=== PATIENT | female | born 1990 | race Two or more races ===

== ENCOUNTER 2022-05-13 13:06 | Emergency (ER) | payer MEDICAID, OTHER ==
[~2022-05-13] VITALS: Ht 162.6 cm; Wt 73.0 kg
[2022-05-13 13:45] VITALS: BP 102/82
== END 2022-05-13 14:51 | disposition left against medical advice (07) ==
LOC: EDBD 13:06 → ER 13:06
DX: S51.812A Laceration without foreign body of left forearm, initial encounter (principal); Z53.29 Procedure and treatment not carried out because of patient's decision for other reasons; W26.9XXA Contact with unspecified sharp object(s), initial encounter; Y93.89 Activity, other specified; Y92.89 Other specified places as the place of occurrence of the external cause; Y99.8 Other external cause status

== ENCOUNTER 2024-03-16 16:00 | Inpatient (IN) | payer MEDICAID ==
[~2024-03-16] VITALS: Ht 162.6 cm; Wt 90.8 kg
[2024-03-16] VITALS (11 sets, daily range): BP systolic 75–112; BP diastolic 33–62; PULSE 87–117; RESP 22–39; TEMP 94.8–97.5; O2SAT 100
[2024-03-16 16:38] LABS: Mean Corpuscular Hemoglobin 29.6 pg (28.0-32.0); Mean Corpuscular Hgb Conc. 30.8 g/dL (32.0-36.0); Mean Corpuscular Volume 96.1 fL (80.0-100.0); Red Blood Cells 1.97 10^6/uL (4.0-5.20); White Blood Cell 6.8 10^3/uL (4.4-10.8)
[2024-03-16 16:46] LABS: Albumin 1.9 g/dL (3.2-4.8); Alkaline Phosphatase 117 U/L (46-116); Anion Gap 16 (5-15); Blood Alcohol < 3.0 mg/dL (<10); Calcium 7.2 mg/dL (8.7-10.4); Carbon Dioxide 15 mmol/L (20-30); Chloride 103 mmol/L (98-107); Glucose 61 mg/dL (74-106); Potassium 3.9 mmol/L (3.5-5.1); Sodium 134 mmol/L (136-145)
[2024-03-16 16:47] LABS: Bilirubin, Total 19.8 mg/dL (0.2-1.0)
[2024-03-16 16:49] LABS: Alanine Aminotransferase 30 U/L (7-40); Aspartate Aminotransferase 125 U/L (13-40); Total Protein 5.1 g/dL (5.7-8.2)
[2024-03-16 16:58] LABS: Red Cell Distribution Width 35.4 % (11.8-14.3)
[2024-03-16 17:01] LABS: BUN/Creatinine Ratio 18.4 (10.0-20.0); Blood Urea Nitrogen 18 mg/dL (9-23); Lipase 54 U/L (12-53); Partial Thromboplastin Time 42.7 SEC (24.5-34.5); Prothrombin Time 39.3 sec (9.3-11.8)
[2024-03-16 17:02] LABS: Basophils % (manual) 0 (0.0-2.0); Blast Cells 0; Eosinophils % (manual) 0 (0-7); Hemoglobin 5.8 g/dL (12.2-16.2); Metamyelocytes % 0; Myelocytes % 0; Promyelocytes % 0; Reactive Lymphocytes 0
[2024-03-16 17:04] LABS: INR 4.12 (0.9-1.15)
[2024-03-16 17:10] LABS: Band Neutrophils % (manual) 2; Lymphocytes % (manual) 26 (10.0-50.0)
[2024-03-16 17:11] LABS: Anisocytosis Slight; Large Platelets FEW; Macrocytosis Slight; Monocytes % (manual) 21 (0-12); Platelet Estimate Adequa; Polychromasia Slight
[2024-03-16] MEDS: NOREPINEPHRINE 8 MG/250ML KIT 250 ML IV SCH (17:57)
[2024-03-16] MEDS: PANTOPRAZOLE 40 MG/10 ML VIAL INJ IV ONE (17:59)
[2024-03-16] MEDS ORDERED: ACETAMINOPHEN 325 MG TAB PO PRN (20:30)
[2024-03-16] MEDS ORDERED: DOCUSATE SOD 100 MG CAP PO PRN (20:30)
[2024-03-16] MEDS ORDERED: HYDROcodone-ACET 5/325MG TAB PO PRN (20:30)
[2024-03-16] MEDS ORDERED: ONDANSETRON HCL 4 MG/2 ML VIAL IV PRN (20:30)
[2024-03-16] MEDS: phytonadione 1 ML ONE (22:27)
[2024-03-16] MEDS: SODIUM CHLOR 0.9% PF (SALINE LOCK) 10ML VIAL/SYR IV SCH (22:27)
[2024-03-16] MEDS: phytonadione 10 MG in SODIUM CHL 0.9% 50 ML IV ONE (22:32)
[2024-03-16] MEDS: LACTULOSE 20Gm/30ML SOLN PO SCH (22:32)
[2024-03-16] MEDS: rifAXIMin 550 MG TAB PO SCH (22:33)
[2024-03-16] MEDS: OCTREOTIDE ACETATE 500 MCG in SODIUM CHL 0.9% 99 ML IV SCH (23:15)
[2024-03-16] MEDS: PANTOPRAZOLE 40mg/50ML NS AE 50 ML IV SCH (23:15)
[2024-03-16] MEDS: OCTREOTIDE ACETATE 500 MCG/ML VL ONE (23:49)
[2024-03-17 01:58] VITALS: BP 125/66; PULSE 90; RESP 24; TEMP 98.8
[2024-03-17 02:18] VITALS: BP 130/76; PULSE 93; RESP 24; TEMP 98.8
[2024-03-17 04:30] VITALS: BP 143/53; PULSE 103; RESP 22; TEMP 98.1
[2024-03-17] MEDS: OCTREOTIDE ACETATE 500 MCG/ML VL ONE (06:46)
[2024-03-17 08:39] LABS: Hemoglobin 7.7 g/dL (12.2-16.2)
[2024-03-17 08:42] LABS: Hematocrit 23.4 % (36.0-46.0); Mean Corpuscular Hemoglobin 29.1 pg (28.0-32.0); Mean Corpuscular Hgb Conc. 32.8 g/dL (32.0-36.0); Mean Corpuscular Volume 88.7 fL (80.0-100.0); Red Blood Cells 2.64 10^6/uL (4.0-5.20); White Blood Cell 8.2 10^3/uL (4.4-10.8)
[2024-03-17 08:46] LABS: INR 2.31 (0.9-1.15)
[2024-03-17 08:54] LABS: Red Cell Distribution Width 28.6 % (11.8-14.3)
[2024-03-17 08:56] LABS: Basophils % (manual) 0 (0.0-2.0); Blast Cells 0; Eosinophils % (manual) 0 (0-7); Metamyelocytes % 0; Myelocytes % 0; Promyelocytes % 0; Reactive Lymphocytes 0
[2024-03-17] MEDS: cefTRIAXone 1GM/50ML D5W 50 ML IV SCH (09:04)
[2024-03-17 09:40] LABS: Band Neutrophils % (manual) 1; Lymphocytes % (manual) 31 (10.0-50.0); Monocytes % (manual) 21 (0-12)
[2024-03-17 09:41] LABS: Anisocytosis Moderate; Platelet Estimate Adequate; Polychromasia Slight
[2024-03-17] MEDS ORDERED: phytonadione 10 MG in SODIUM CHL 0.9% 50 ML IV ONE (11:30)
[2024-03-17] MEDS: ALBUMIN 25% 100 ML IV SCH (11:48)
[2024-03-17] MEDS ORDERED: HYDROcodone-ACET 5/325MG TAB PO PRN (12:00)
[2024-03-17 12:38] LABS: Hematocrit 23.5 % (36.0-46.0); Hemoglobin 7.9 g/dL (12.2-16.2)
[2024-03-17 18:38] LABS: Hematocrit 22.4 % (36.0-46.0); Hemoglobin 7.1 g/dL (12.2-16.2)
[2024-03-17 19:04] LABS: Alkaline Phosphatase 91 U/L (46-116); Anion Gap 13 (5-15); Calcium 7.8 mg/dL (8.7-10.4); Carbon Dioxide 20 mmol/L (20-30); Chloride 103 mmol/L (98-107); Glucose 71 mg/dL (74-106); Potassium 3.7 mmol/L (3.5-5.1); Sodium 136 mmol/L (136-145)
[2024-03-17 19:05] LABS: Albumin 2.8 g/dL (3.2-4.8); Bilirubin, Total 24.4 mg/dL (0.2-1.0)
[2024-03-17 19:15] VITALS: PULSE 96; RESP 17; O2SAT 98
[2024-03-17 19:41] LABS: Alanine Aminotransferase 43 U/L (7-40); Aspartate Aminotransferase 338 U/L (13-40); Blood Urea Nitrogen 22 mg/dL (9-23); Total Protein 5.7 g/dL (5.7-8.2)
[2024-03-17 23:29] VITALS: BP 95/43; PULSE 78; RESP 17; TEMP 97.7; O2SAT 99
[2024-03-17 23:50] VITALS: BP 106/54; PULSE 83
[2024-03-18] VITALS (12 sets, daily range): BP systolic 91–118; BP diastolic 40–67; PULSE 66–93; RESP 16–18; TEMP 97.5–98.3; O2SAT 96–99
[2024-03-18] MEDS: PANTOPRAZOLE 40mg/50ML NS AE 50 ML IV SCH (00:22)
[2024-03-18 01:02] LABS: Hematocrit 21.8 % (36.0-46.0)
[2024-03-18 01:27] LABS: Hemoglobin 6.9 g/dL (12.2-16.2)
[2024-03-18] MEDS: OCTREOTIDE ACETATE 100 MCG/ML VL ONE (04:45)
[2024-03-18] MEDS: OCTREOTIDE ACETATE 500 MCG in SODIUM CHL 0.9% 99 ML IV SCH (05:43)
[2024-03-18 09:14] LABS: Basophils # (auto) 0 10 ^3/uL (0-0.2); Eosinophils # (auto) 0.1 10 ^3/uL (0-0.8); Mean Corpuscular Volume 89.5 fL (80.0-100.0)
[2024-03-18 09:16] LABS: Basophils % (auto) 0.6 % (0.0-2.0); Eosinophils % (auto) 1.5 % (0.0-7.0); Hematocrit 25.3 % (36.0-46.0); Hemoglobin 8.4 g/dL (12.2-16.2); Lymphocytes # (auto) 1.6 10 ^3/uL (0.4-5.4); Lymphocytes % (auto) 27.8 % (10.0-50.0); Mean Corpuscular Hemoglobin 29.7 pg (28.0-32.0); Mean Corpuscular Hgb Conc. 33.2 g/dL (32.0-36.0); Monocytes # (auto) 1.4 10 ^3/uL (0-1.3); Monocytes % (auto) 23.6 % (0.0-12.0); Neutrophils # (auto) 2.7 10 ^3/uL (1.6-8.6); Neutrophils % (auto) 46.5 % (37.0-80.0); Nucleated Red Blood Cells % 0.3 %; Red Blood Cells 2.82 10^6/uL (4.0-5.20); Red Cell Distribution Width 24.9 % (11.8-14.3); White Blood Cell 5.9 10^3/uL (4.4-10.8)
[2024-03-18 09:22] LABS: INR 2.24 (0.9-1.15); Partial Thromboplastin Time 43.2 SEC (24.5-34.5); Prothrombin Time 22.4 sec (9.3-11.8)
[2024-03-18 09:26] LABS: Albumin 2.5 g/dL (3.2-4.8); Alkaline Phosphatase 92 U/L (46-116); Anion Gap 12 (5-15); Calcium 7.6 mg/dL (8.7-10.4); Carbon Dioxide 21 mmol/L (20-30); Chloride 104 mmol/L (98-107); Glucose 66 mg/dL (74-106); Magnesium 1.5 mg/dL (1.6-2.6); Potassium 3.4 mmol/L (3.5-5.1); Sodium 137 mmol/L (136-145)
[2024-03-18 09:27] LABS: Bilirubin, Total 23.4 mg/dL (0.2-1.0)
[2024-03-18 10:44] LABS: Alanine Aminotransferase 37 U/L (7-40); Aspartate Aminotransferase 228 U/L (13-40); BUN/Creatinine Ratio 16.2 (10.0-20.0); Blood Urea Nitrogen 23 mg/dL (9-23); Total Protein 5.1 g/dL (5.7-8.2)
[2024-03-18 12:09] LABS: Hemoglobin 8.1 g/dL (12.2-16.2)
[2024-03-18] MEDS: phytonadione 10 MG in SODIUM CHL 0.9% 50 ML IV ONE (13:07)
[2024-03-18] MEDS: POTASSIUM CHL 20MEQ/100ML 100 ML IV ONE (13:28)
[2024-03-18] MEDS: SODIUM CHLORIDE 0.9% 1,000 ML IV SCH (13:28)
[2024-03-18] MEDS: MAGNESIUM SULFATE 1GM/100ML 100 ML IV SCH (15:17)
[2024-03-18] MEDS: SODIUM CHLORIDE 0.9% 500 ML IV ONE (15:23)
[2024-03-18 18:41] LABS: Hematocrit 32.2 % (36.0-46.0); Hemoglobin 10.3 g/dL (12.2-16.2)
[2024-03-19] VITALS (10 sets, daily range): BP systolic 98–107; BP diastolic 43–68; PULSE 70–90; RESP 17–20; TEMP 97.5–98.7; O2SAT 95–100
[2024-03-19 06:16] LABS: Mean Corpuscular Hemoglobin 29.6 pg (28.0-32.0); Red Blood Cells 2.79 10^6/uL (4.0-5.20); White Blood Cell 5.2 10^3/uL (4.4-10.8)
[2024-03-19 06:19] LABS: Hematocrit 24.6 % (36.0-46.0); Hemoglobin 8.2 g/dL (12.2-16.2); Mean Corpuscular Hgb Conc. 33.5 g/dL (32.0-36.0); Mean Corpuscular Volume 88.3 fL (80.0-100.0)
[2024-03-19 06:31] LABS: Red Cell Distribution Width 23.9 % (11.8-14.3)
[2024-03-19 06:32] LABS: Band Neutrophils % (manual) 0; Basophils % (manual) 0 (0.0-2.0); Blast Cells 0; Metamyelocytes % 0; Myelocytes % 0; Promyelocytes % 0; Reactive Lymphocytes 0
[2024-03-19 06:35] LABS: Albumin 2.3 g/dL (3.2-4.8); Alkaline Phosphatase 97 U/L (46-116); Anion Gap 8 (5-15); Calcium 7.5 mg/dL (8.7-10.4); Carbon Dioxide 21 mmol/L (20-30); Chloride 106 mmol/L (98-107); Glucose 95 mg/dL (74-106); Magnesium 1.8 mg/dL (1.6-2.6); Potassium 3.2 mmol/L (3.5-5.1); Sodium 135 mmol/L (136-145)
[2024-03-19 06:36] LABS: Bilirubin, Total 23.4 mg/dL (0.2-1.0)
[2024-03-19 06:46] LABS: Alanine Aminotransferase 34 U/L (7-40); Aspartate Aminotransferase 147 U/L (13-40); BUN/Creatinine Ratio 19.2 (10.0-20.0); Blood Urea Nitrogen 20 mg/dL (9-23)
[2024-03-19 09:25] LABS: Eosinophils % (manual) 1 (0-7); Lymphocytes % (manual) 23 (10.0-50.0); Monocytes % (manual) 18 (0-12)
[2024-03-19 09:26] LABS: Anisocytosis Slight; Platelet Estimate Adequate
[2024-03-19] MEDS: POTASSIUM CHL 20MEQ/100ML 100 ML IV ONE (10:30)
[2024-03-19] MEDS ORDERED: SODIUM CHLORIDE LOCK 10 ML ONE (11:45)
[2024-03-19] MEDS: LIDOCAINE VISCOUS 2% 15ML UD ONE (13:17)
[2024-03-19] MEDS: diphenhdrAMINE HCL 50 MG/1 ML VL ONE (13:20)
[2024-03-19] MEDS: fentaNYL CITRATE 100 MCG/2 ML VL ONE (13:20)
[2024-03-19] MEDS: MIDAZOLAM HCL 5 MG/ML-1ML VIAL ONE (13:20)
[2024-03-19] MEDS: POTASSIUM CHLORIDE 40 MEQ, LIDOCAINE 1% (LOCAL ANESTH.) 4 ML in SODIUM CHL 0.9% 250 ML IV ONE (14:30)
[2024-03-19] MEDS: SUCRALFATE 1 GM/10 ML ORAL SUSP PO SCH (16:55)
[2024-03-20] VITALS (9 sets, daily range): BP systolic 95–116; BP diastolic 55–72; PULSE 68–109; RESP 17–20; TEMP 97.4–98.6; O2SAT 97–100
[2024-03-20 06:31] LABS: Albumin 2.2 g/dL (3.2-4.8); Alkaline Phosphatase 105 U/L (46-116); Anion Gap 9 (5-15); Calcium 7.6 mg/dL (8.7-10.4); Carbon Dioxide 19 mmol/L (20-30); Chloride 109 mmol/L (98-107); Glucose 79 mg/dL (74-106); Magnesium 1.8 mg/dL (1.6-2.6); Potassium 3.8 mmol/L (3.5-5.1); Sodium 137 mmol/L (136-145)
[2024-03-20 06:32] LABS: Bilirubin, Total 25.7 mg/dL (0.2-1.0)
[2024-03-20 06:33] LABS: Alanine Aminotransferase 38 U/L (7-40); Aspartate Aminotransferase 124 U/L (13-40); Blood Urea Nitrogen 12 mg/dL (9-23); Total Protein 5.2 g/dL (5.7-8.2)
[2024-03-20 06:35] LABS: Hematocrit 29.8 % (36.0-46.0); Hemoglobin 9.5 g/dL (12.2-16.2); Mean Corpuscular Hemoglobin 29.4 pg (28.0-32.0); Mean Corpuscular Hgb Conc. 31.9 g/dL (32.0-36.0); Mean Corpuscular Volume 92.2 fL (80.0-100.0); Red Blood Cells 3.23 10^6/uL (4.0-5.20); White Blood Cell 5.5 10^3/uL (4.4-10.8)
[2024-03-20 06:44] LABS: Red Cell Distribution Width 24.7 % (11.8-14.3)
[2024-03-20 06:46] LABS: Band Neutrophils % (manual) 0; Basophils % (manual) 0 (0.0-2.0); Blast Cells 0; Eosinophils % (manual) 0 (0-7); Metamyelocytes % 0; Myelocytes % 0; Promyelocytes % 0; Reactive Lymphocytes 0
[2024-03-20 08:36] LABS: Lymphocytes % (manual) 29 (10.0-50.0)
[2024-03-20 08:37] LABS: Anisocytosis Slight; Monocytes % (manual) 18 (0-12); Platelet Estimate Adequate
[2024-03-20 09:24] LABS: Hepatitis B Surface Antigen Negative (Negative)
[2024-03-20 09:29] LABS: Hepatitis B Surface Antigen Negative (Negative)
[2024-03-20 09:46] LABS: Hepatitis A Ab IgM Negative; Hepatitis B Core IgM Negative
[2024-03-20 09:47] LABS: Hepatitis C Antibody Negative (Negative)
[2024-03-20 09:51] LABS: Hepatitis C Antibody Negative (Negative)
[2024-03-20] MEDS: PANTOPRAZOLE 40 MG/10 ML VIAL INJ IV SCH (10:07)
[2024-03-20 10:47] LABS: Urine Bacteria FEW /hpf (None Seen); Urine Blood 3+ /uL (Negative); Urine Clarity Turbid (Clear); Urine Color Dark-Yellow (Yellow); Urine Protein, UAD TRACE (Negative); Urine Specific Gravity 1.014 (1.001-1.035); Urine Urobilinogen Normal (Negative); Urine WBC 16 /hpf (0 - 5)
[2024-03-20 11:02] LABS: Sodium Urine < 10 mmol/L (40-220)
[2024-03-20 11:09] LABS: Creatinine, Urine 80.85 mg/dL (30.0-125.0)
[2024-03-21 08:30] VITALS: PULSE 83; RESP 18; O2SAT 97
[2024-03-21 09:00] VITALS: BP 105/63; PULSE 83; RESP 18; TEMP 97.8; O2SAT 97
[2024-03-21] MEDS: predniSONE 20 MG TAB PO SCH (09:08)
[2024-03-21] MEDS: FUROSEMIDE 40 MG/4 ML VIAL IV ONE (11:24)
[2024-03-21] MEDS ORDERED: FUROSEMIDE 40 MG/4 ML VIAL IV SCH (18:00)
== END 2024-03-21 15:58 | disposition short-term general hospital (02) | DRG 241 ==
LOC: EDBD 16:00 → ER 16:00 → TELE 20:26 → TELE-WESTW 03-17 22:38
PROVIDERS: ADMIT Internal Medicine; ATTEND Internal Medicine Geriatric Medicine
PROC: 30233K1 Transfusion of Nonautologous Frozen Plasma into Peripheral Vein, Percutaneous Approach (ICD-10-PCS; 2024-03-16)
PROC: 30233N1 Transfusion of Nonautologous Red Blood Cells into Peripheral Vein, Percutaneous Approach (ICD-10-PCS; 2024-03-16)
PROC: 0DB68ZX Excision of Stomach, Via Natural or Artificial Opening Endoscopic, Diagnostic (ICD-10-PCS; principal; 2024-03-19 13:12)
DX: K28.4 Chronic or unspecified gastrojejunal ulcer with hemorrhage (principal); R57.1 Hypovolemic shock; E43 Unspecified severe protein-calorie malnutrition; D68.9 Coagulation defect, unspecified; E87.20 Acidosis, unspecified; K83.1 Obstruction of bile duct; N17.9 Acute kidney failure, unspecified; K76.82 Hepatic encephalopathy; E87.1 Hypo-osmolality and hyponatremia; E88.09 Other disorders of plasma-protein metabolism, not elsewhere classified; K70.31 Alcoholic cirrhosis of liver with ascites; I95.9 Hypotension, unspecified; D62 Acute posthemorrhagic anemia; K76.0 Fatty (change of) liver, not elsewhere classified; E87.6 Hypokalemia; E66.9 Obesity, unspecified; K70.11 Alcoholic hepatitis with ascites; K29.70 Gastritis, unspecified, without bleeding; Z90.49 Acquired absence of other specified parts of digestive tract; Z88.6 Allergy status to analgesic agent; Z98.84 Bariatric surgery status; Z68.34 Body mass index [BMI] 34.0-34.9, adult
CPT/HCPCS: 36415; 43239; 74176; 76705; 80053; 80074; 80320; 81001; 81025; 82140; 82248; 82570; 83690; 83735; 84300; 84702; 85007; 85014; 85018; 85025; 85027; 85610; 85730; 86803; 86850; 86900; 86901; 86920; 87340; 96361; 96365; 96366; 96367; 96375; 97163; 99291; G0378; J2001; J2250; J2470; J3430; J3480; P9047

== ENCOUNTER 2024-04-03 15:19 | Inpatient (IN) | payer MEDICAID ==
[~2024-04-03] VITALS: Ht 162.6 cm; Wt 87.0 kg
[2024-04-03 16:30] VITALS: PULSE 123; RESP 18; O2SAT 99
[2024-04-03 17:01] LABS: Alkaline Phosphatase 93 U/L (46-116); Bilirubin, Total 29.9 mg/dL (0.2-1.0); Calcium 8.7 mg/dL (8.7-10.4); Chloride 105 mmol/L (98-107); Potassium 5.3 mmol/L (3.5-5.1); Sodium 135 mmol/L (136-145)
[2024-04-03] MEDS: DEXTROSE (50%) 50ML SYRG IV ONE (17:01)
[2024-04-03 17:02] LABS: Mean Corpuscular Volume 96.9 fL (80.0-100.0)
[2024-04-03 17:04] LABS: Alanine Aminotransferase 23 U/L (7-40); Albumin 2.6 g/dL (3.2-4.8); Anion Gap 12 (5-15); Aspartate Aminotransferase 79 U/L (13-40); BUN/Creatinine Ratio 12.5 (10.0-20.0); Basophils # (auto) 0 10 ^3/uL (0-0.2); Basophils % (auto) 0.2 % (0.0-2.0); Blood Urea Nitrogen 13 mg/dL (9-23); Carbon Dioxide 18 mmol/L (20-30); Eosinophils # (auto) 0.1 10 ^3/uL (0-0.8); Eosinophils % (auto) 0.3 % (0.0-7.0); Glucose 77 mg/dL (74-106); Hematocrit 24.4 % (36.0-46.0); Hemoglobin 8.1 g/dL (12.2-16.2); Lymphocytes % (auto) 9.2 % (10.0-50.0); Mean Corpuscular Hgb Conc. 33.1 g/dL (32.0-36.0); Monocytes # (auto) 1.7 10 ^3/uL (0-1.3); Monocytes % (auto) 7.6 % (0.0-12.0); Neutrophils # (auto) 18.2 10 ^3/uL (1.6-8.6); Neutrophils % (auto) 82.7 % (37.0-80.0); Nucleated Red Blood Cells % 0.1 %; Red Blood Cells 2.52 10^6/uL (4.0-5.20); Total Protein 5.3 g/dL (5.7-8.2)
[2024-04-03 17:06] LABS: Red Cell Distribution Width 26.3 % (11.8-14.3)
[2024-04-03] MEDS: PIPERACILLIN-TAZOB 3.375GM 100 ML IV ONE (17:56)
[2024-04-03] MEDS: LABETALOL HCL 20 MG/4 ML VL IV ONE (17:57)
[2024-04-03 18:21] LABS: Urine Bacteria FEW /hpf (None Seen); Urine Blood Negative /uL (Negative); Urine Clarity Turbid (Clear); Urine Color Dark-Orange (Yellow); Urine Mucus MODERATE (None Seen); Urine Protein, UAD 1+ (Negative); Urine Specific Gravity 1.026 (1.001-1.035); Urine Urobilinogen Normal (Negative); Urine WBC 19 /hpf (0 - 5); Urine WBC Clumps PRESENT /hpf (None Seen)
[2024-04-03 18:28] LABS: Lactic Acid w/Reflex 4.1 mmol/L (0.4-2.0)
[2024-04-03] MEDS ORDERED: SODIUM CHLORIDE 0.9% 1,000 ML IV ONE (18:30)
[2024-04-03] MEDS: VANCOMYCIN 1GM/200ML 200 ML IV ONE (18:58)
[2024-04-03] MEDS: LORazepam 2MG/ML-1ML VIAL IV ONE (19:35)
[2024-04-03] MEDS: VANCOMYCIN PER PHARMACY 0 MG IV SCH (19:44)
[2024-04-03 20:00] VITALS: PULSE 120; RESP 16; O2SAT 96
[2024-04-03 20:18] LABS: Partial Thromboplastin Time 62.7 SEC (24.5-34.5)
[2024-04-03 20:25] LABS: Prothrombin Time 25.6 sec (9.3-11.8)
[2024-04-03 20:28] LABS: INR 2.6 (0.9-1.15)
[2024-04-03] MEDS ORDERED: hydrALAZINE HCL 20 MG/ML VL IV PRN (22:00)
[2024-04-03] MEDS ORDERED: ONDANSETRON HCL 4 MG/2 ML VIAL IV PRN (22:00)
[2024-04-03] MEDS ORDERED: METOPROLOL TARTRATE 1MG/1ML-5ML VIAL IV PRN (22:00)
[2024-04-03] MEDS ORDERED: DOCUSATE SOD 100 MG CAP PO PRN (22:00)
[2024-04-03] MEDS: SODIUM CHLORIDE 0.9% 1,000 ML IV SCH (22:30)
[2024-04-03] MEDS: FAMOTIDINE (10MG/ML) 2ML VL IV SCH (22:40)
[2024-04-03] MEDS: PIPERACILLIN-TAZOB 3.375GM 100 ML IV SCH (22:45)
[2024-04-03] MEDS: ALBUMIN 25% 100 ML IV ONE (22:46)
[2024-04-03] MEDS ORDERED: NITROGLYCERIN 0.4 MG SL TAB SL PRN (23:45)
[2024-04-04] VITALS (10 sets, daily range): BP systolic 95–112; BP diastolic 40–61; PULSE 89–107; RESP 16–20; TEMP 97.3–97.9; O2SAT 97–100
[2024-04-04] MEDS: LACTULOSE 20Gm/30ML SOLN PO SCH (00:03)
[2024-04-04] MEDS: PNEUMOCOCCAL VACC POLYS 25 MCG/0.5 ML VIAL IM ONE (02:45)
[2024-04-04] MEDS ORDERED: FURO40TA4 PO (02:47)
[2024-04-04] MEDS ORDERED: RIFA550T PO (02:47)
[2024-04-04] MEDS ORDERED: SPIR25TA PO (02:49)
[2024-04-04] MEDS ORDERED: OMEP20TA PO (02:49)
[2024-04-04] MEDS ORDERED: LACT10SO3 PO ×2 (02:49)
[2024-04-04] MEDS: VANCOMYCIN 1GM/200ML 200 ML IV SCH (03:16)
[2024-04-04 06:53] LABS: Alkaline Phosphatase 76 U/L (46-116); Anion Gap 10 (5-15); Calcium 8.7 mg/dL (8.7-10.4); Carbon Dioxide 20 mmol/L (20-30); Chloride 106 mmol/L (98-107); Glucose 76 mg/dL (74-106); Potassium 4.7 mmol/L (3.5-5.1); Sodium 136 mmol/L (136-145)
[2024-04-04 06:54] LABS: Albumin 2.4 g/dL (3.2-4.8); Bilirubin, Total 26.7 mg/dL (0.2-1.0)
[2024-04-04 07:02] LABS: Alanine Aminotransferase 20 U/L (7-40); Aspartate Aminotransferase 64 U/L (13-40); BUN/Creatinine Ratio 13.3 (10.0-20.0); Blood Urea Nitrogen 12 mg/dL (9-23); Total Protein 4.8 g/dL (5.7-8.2)
[2024-04-04 07:52] LABS: Basophils # (auto) 0 10 ^3/uL (0-0.2); Basophils % (auto) 0.2 % (0.0-2.0); Eosinophils # (auto) 0.2 10 ^3/uL (0-0.8); Eosinophils % (auto) 1.1 % (0.0-7.0); Hematocrit 23.6 % (36.0-46.0); Hemoglobin 7.6 g/dL (12.2-16.2); Lymphocytes # (auto) 1.9 10 ^3/uL (0.4-5.4); Lymphocytes % (auto) 11.2 % (10.0-50.0); Mean Corpuscular Hemoglobin 32.6 pg (28.0-32.0); Mean Corpuscular Hgb Conc. 32.1 g/dL (32.0-36.0); Mean Corpuscular Volume 101.4 fL (80.0-100.0); Monocytes # (auto) 1.4 10 ^3/uL (0-1.3); Monocytes % (auto) 8.5 % (0.0-12.0); Neutrophils # (auto) 13.3 10 ^3/uL (1.6-8.6); Nucleated Red Blood Cells % 0.1 %; Red Blood Cells 2.33 10^6/uL (4.0-5.20); White Blood Cell 16.8 10^3/uL (4.4-10.8)
[2024-04-04 07:53] LABS: Red Cell Distribution Width 26.9 % (11.8-14.3)
[2024-04-04] MEDS: SPIRONOLACTONE 25 MG TAB PO SCH (09:20)
[2024-04-04] MEDS: FUROSEMIDE 40 MG/4 ML VIAL IV SCH (09:20)
[2024-04-04 18:10] LABS: Body Fluid Polymorphonuclear 5 % (0-25); Body Fluid Red Blood Cells 735 CUMM (0-2000); Body Fluid White Blood Cells 43 CUMM (0-200)
[2024-04-04] MEDS: ALBUMIN 25% 50 ML IV ONE (18:38)
[2024-04-05] VITALS (7 sets, daily range): BP systolic 93–111; BP diastolic 49–63; PULSE 88–107; RESP 18–20; TEMP 97.8–98.1; O2SAT 96–99
[2024-04-05] MEDS: IBUPROFEN 600 MG TAB PO PRN (00:25)
[2024-04-05 05:47] LABS: Eosinophils # (auto) 0.2 10 ^3/uL (0-0.8); Hemoglobin 7.1 g/dL (12.2-16.2); Monocytes # (auto) 1.1 10 ^3/uL (0-1.3)
[2024-04-05 05:50] LABS: Basophils # (auto) 0 10 ^3/uL (0-0.2); Basophils % (auto) 0.3 % (0.0-2.0); Eosinophils % (auto) 1.6 % (0.0-7.0); Hematocrit 21.2 % (36.0-46.0); Lymphocytes # (auto) 1.7 10 ^3/uL (0.4-5.4); Lymphocytes % (auto) 13.5 % (10.0-50.0); Mean Corpuscular Hgb Conc. 33.5 g/dL (32.0-36.0); Mean Corpuscular Volume 95.5 fL (80.0-100.0); Monocytes % (auto) 8.6 % (0.0-12.0); Neutrophils # (auto) 9.8 10 ^3/uL (1.6-8.6); Red Blood Cells 2.22 10^6/uL (4.0-5.20); White Blood Cell 12.9 10^3/uL (4.4-10.8)
[2024-04-05 06:09] LABS: Alkaline Phosphatase 67 U/L (46-116); Anion Gap 8 (5-15); Calcium 8.1 mg/dL (8.7-10.4); Carbon Dioxide 22 mmol/L (20-30); Chloride 109 mmol/L (98-107); Glucose 82 mg/dL (74-106); Sodium 139 mmol/L (136-145)
[2024-04-05 06:10] LABS: Albumin 2.2 g/dL (3.2-4.8); Bilirubin, Total 26.2 mg/dL (0.2-1.0)
[2024-04-05 06:25] LABS: Alanine Aminotransferase 17 U/L (7-40); Aspartate Aminotransferase 67 U/L (13-40); Total Protein 4.6 g/dL (5.7-8.2)
[2024-04-05 07:24] LABS: BUN/Creatinine Ratio 14.3 (10.0-20.0); Blood Urea Nitrogen 11 mg/dL (9-23)
[2024-04-05] MEDS ORDERED: PIPERACILLIN-TAZOB 3.375GM 100 ML IV SCH (08:00)
[2024-04-05] MEDS ORDERED: GASTROGRAFIN 30 ML SOL XX ONE (08:00)
[2024-04-05] MEDS ORDERED: GASTROGRAFIN 120 ML SOL ONE (08:41)
[2024-04-05] MEDS: PIPERACILLIN-TAZOB 3.375GM 100 ML IV SCH (10:35)
[2024-04-05] MEDS: methylPREDNISolone SOD SUCC 40 MG/ML VL IV SCH (22:37)
[2024-04-05] MEDS: LACTULOSE 20Gm/30ML SOLN PO SCH (22:45)
[2024-04-06] VITALS (8 sets, daily range): BP systolic 92–106; BP diastolic 55–68; PULSE 71–84; RESP 17–20; TEMP 97.7–98.9; O2SAT 96–100
[2024-04-06] MEDS: PANTOPRAZOLE 40 MG TAB PO SCH (06:09)
[2024-04-06 06:16] LABS: Basophils # (auto) 0 10 ^3/uL (0-0.2); Eosinophils # (auto) 0 10 ^3/uL (0-0.8); Hemoglobin 7.3 g/dL (12.2-16.2); Monocytes # (auto) 0.2 10 ^3/uL (0-1.3)
[2024-04-06 06:19] LABS: Basophils % (auto) 0.2 % (0.0-2.0); Hematocrit 21.4 % (36.0-46.0); Lymphocytes # (auto) 0.5 10 ^3/uL (0.4-5.4); Mean Corpuscular Hemoglobin 32.9 pg (28.0-32.0); Mean Corpuscular Hgb Conc. 34.3 g/dL (32.0-36.0); Mean Corpuscular Volume 95.8 fL (80.0-100.0); Monocytes % (auto) 1.8 % (0.0-12.0); Neutrophils # (auto) 9.9 10 ^3/uL (1.6-8.6); Red Blood Cells 2.23 10^6/uL (4.0-5.20); White Blood Cell 10.7 10^3/uL (4.4-10.8)
[2024-04-06 06:31] LABS: Alkaline Phosphatase 71 U/L (46-116); Anion Gap 12 (5-15); Calcium 7.9 mg/dL (8.7-10.4); Carbon Dioxide 21 mmol/L (20-30); Chloride 106 mmol/L (98-107); Glucose 120 mg/dL (74-106); Potassium 3.2 mmol/L (3.5-5.1); Sodium 139 mmol/L (136-145)
[2024-04-06 06:32] LABS: Albumin 2.2 g/dL (3.2-4.8)
[2024-04-06 06:48] LABS: Red Cell Distribution Width 25.8 % (11.8-14.3)
[2024-04-06 07:06] LABS: Alanine Aminotransferase 18 U/L (7-40); Aspartate Aminotransferase 68 U/L (13-40); Total Protein 4.7 g/dL (5.7-8.2)
[2024-04-06 08:03] LABS: Bilirubin, Total 27.5 mg/dL (0.2-1.0)
[2024-04-06 08:20] LABS: Blood Urea Nitrogen 12 mg/dL (9-23)
[2024-04-06 08:23] LABS: Anisocytosis Moderate
[2024-04-06 08:24] LABS: Platelet Estimate Adequate; Target Cell FEW
[2024-04-06] MEDS: VANCOMYCIN 1GM/200ML 200 ML IV ONE (10:09)
[2024-04-06] MEDS: THIAMINE HCL 100 MG TAB PO SCH (10:10)
[2024-04-06] MEDS: FOLIC ACID 1 MG TAB PO SCH (10:10)
[2024-04-06] MEDS: POTASSIUM EFFERVESENT TAB 25 MEQ PO ONE (15:38)
[2024-04-06] MEDS: POTASSIUM CHLORIDE 60 MEQ, LIDOCAINE 1% (LOCAL ANESTH.) 6 ML in SODIUM CHL 0.9% 500 ML IV ONE (15:39)
[2024-04-06 19:19] LABS: Basophils # (auto) 0 10 ^3/uL (0-0.2); Basophils % (auto) 0.1 % (0.0-2.0); Eosinophils # (auto) 0 10 ^3/uL (0-0.8); Hematocrit 25.5 % (36.0-46.0); Hemoglobin 8.5 g/dL (12.2-16.2); Lymphocytes # (auto) 1.2 10 ^3/uL (0.4-5.4); Lymphocytes % (auto) 8.2 % (10.0-50.0); Mean Corpuscular Hemoglobin 31.7 pg (28.0-32.0); Mean Corpuscular Hgb Conc. 33.2 g/dL (32.0-36.0); Mean Corpuscular Volume 95.6 fL (80.0-100.0); Monocytes # (auto) 0.4 10 ^3/uL (0-1.3); Monocytes % (auto) 2.8 % (0.0-12.0); Neutrophils # (auto) 12.6 10 ^3/uL (1.6-8.6); Neutrophils % (auto) 88.9 % (37.0-80.0); Red Blood Cells 2.67 10^6/uL (4.0-5.20); Red Cell Distribution Width 25.2 % (11.8-14.3); White Blood Cell 14.2 10^3/uL (4.4-10.8)
[2024-04-06 19:37] LABS: Alkaline Phosphatase 80 U/L (46-116); Bilirubin, Total 30.4 mg/dL (0.2-1.0); Calcium 7.9 mg/dL (8.7-10.4); Chloride 108 mmol/L (98-107); Potassium 4.1 mmol/L (3.5-5.1); Sodium 138 mmol/L (136-145)
[2024-04-06 19:40] LABS: Alanine Aminotransferase 21 U/L (7-40); Albumin 2.5 g/dL (3.2-4.8); Anion Gap 8 (5-15); BUN/Creatinine Ratio 13.3 (10.0-20.0); Blood Urea Nitrogen 12 mg/dL (9-23); Carbon Dioxide 22 mmol/L (20-30); Glucose 144 mg/dL (74-106); Total Protein 5.3 g/dL (5.7-8.2)
[2024-04-06 19:57] LABS: Aspartate Aminotransferase 75 U/L (13-40)
[2024-04-07 01:00] VITALS: BP 100/69; PULSE 75; RESP 18; TEMP 97.6; O2SAT 92
[2024-04-07 05:00] VITALS: BP 94/54; PULSE 70; RESP 18; TEMP 97.7; O2SAT 97
[2024-04-07 06:00] LABS: Basophils # (auto) 0 10 ^3/uL (0-0.2); Eosinophils # (auto) 0 10 ^3/uL (0-0.8); Hemoglobin 7.8 g/dL (12.2-16.2); Lymphocytes # (auto) 1.2 10 ^3/uL (0.4-5.4); Monocytes # (auto) 0.6 10 ^3/uL (0-1.3)
[2024-04-07 06:04] LABS: Basophils % (auto) 0.2 % (0.0-2.0); Hematocrit 23.2 % (36.0-46.0); Lymphocytes % (auto) 8.1 % (10.0-50.0); Mean Corpuscular Hemoglobin 31.8 pg (28.0-32.0); Mean Corpuscular Hgb Conc. 33.4 g/dL (32.0-36.0); Mean Corpuscular Volume 95.3 fL (80.0-100.0); Monocytes % (auto) 4.2 % (0.0-12.0); Neutrophils # (auto) 13.2 10 ^3/uL (1.6-8.6); Neutrophils % (auto) 87.5 % (37.0-80.0); Red Blood Cells 2.44 10^6/uL (4.0-5.20)
[2024-04-07 06:09] LABS: Red Cell Distribution Width 24.9 % (11.8-14.3)
[2024-04-07 06:13] LABS: Albumin 2.3 g/dL (3.2-4.8); Alkaline Phosphatase 79 U/L (46-116); Anion Gap 8 (5-15); Bilirubin, Total 26.8 mg/dL (0.2-1.0); Calcium 8.2 mg/dL (8.7-10.4); Carbon Dioxide 24 mmol/L (20-30); Chloride 108 mmol/L (98-107); Glucose 121 mg/dL (74-106); Magnesium 1.5 mg/dL (1.6-2.6); Potassium 4.5 mmol/L (3.5-5.1); Sodium 140 mmol/L (136-145)
[2024-04-07 06:19] LABS: Alanine Aminotransferase 24 U/L (7-40); Aspartate Aminotransferase 66 U/L (13-40); BUN/Creatinine Ratio 16.3 (10.0-20.0); Blood Urea Nitrogen 16 mg/dL (9-23); Total Protein 4.6 g/dL (5.7-8.2)
[2024-04-07 08:00] VITALS: PULSE 74; RESP 20; O2SAT 99
[2024-04-07 09:00] VITALS: BP 93/58; PULSE 71; RESP 17; TEMP 98; O2SAT 96
[2024-04-07 09:24] LABS: Hepatitis B Core Total AB Negative (Negative)
[2024-04-07] MEDS: ERTAPENEM SOD INJ 1 GM in SODIUM CHL 0.9% 50 ML IV SCH (09:27)
[2024-04-07 10:59] LABS: Hepatitis A Total Antibody Negative (Negative); Hepatitis B Surface Antibody Negative (Negative); Hepatitis B Surface Antigen Negative (Negative); Hepatitis C Antibody Negative (Negative)
[2024-04-07 13:00] VITALS: BP 100/64; PULSE 71; RESP 18; TEMP 98.2; O2SAT 98
[2024-04-07 17:00] VITALS: BP 103/74; PULSE 86; RESP 18; TEMP 98.2; O2SAT 98
== END 2024-04-07 18:39 | disposition short-term general hospital (02) | DRG 720 ==
LOC: EDUNIT# 15:19 → ER 15:19 → EDBD 15:19 → TELE 23:35 → TELE-WESTW 23:35 → TELE-EAST 04-06 11:53 → EAST 04-07 11:54
PROVIDERS: ADMIT Internal Medicine; ATTEND Internal Medicine
PROC: 0W9G3ZZ Drainage of Peritoneal Cavity, Percutaneous Approach (ICD-10-PCS; principal; 2024-04-04)
DX: A41.9 Sepsis, unspecified organism (principal); K76.82 Hepatic encephalopathy; D68.9 Coagulation defect, unspecified; K70.31 Alcoholic cirrhosis of liver with ascites; E87.1 Hypo-osmolality and hyponatremia; D64.9 Anemia, unspecified; K76.0 Fatty (change of) liver, not elsewhere classified; N39.0 Urinary tract infection, site not specified; B96.20 Unspecified Escherichia coli [E. coli] as the cause of diseases classified elsewhere; Z16.12 Extended spectrum beta lactamase (ESBL) resistance; K92.1 Melena; Z88.6 Allergy status to analgesic agent; Z90.49 Acquired absence of other specified parts of digestive tract; Z83.3 Family history of diabetes mellitus; Z82.49 Family history of ischemic heart disease and other diseases of the circulatory system
CPT/HCPCS: 36415; 49083; 70450; 71250; 74176; 74250; 76705; 76942; 80053; 80202; 80320; 81001; 82140; 82962; 83605; 83735; 83880; 83986; 84484; 85025; 85379; 85610; 85730; 86704; 86706; 86708; 86803; 86850; 86900; 86901; 87040; 87081; 87086; 87088; 87186; 87205; 87340; 89051; 93005; 99291; G0378; J1335; J2001; J2543; J3490; P9047

== ENCOUNTER 2024-04-19 11:12 | Emergency (ER) | payer MEDICAID ==
[~2024-04-19] VITALS: Ht 170.2 cm; Wt 75.0 kg
[~2024-04-19 11:12] MED LIST: FURO40TA4 PO; LACT10SO3 PO; OMEP20TA PO; RIFA550T PO; SPIR25TA PO
[2024-04-19 11:30] VITALS: PULSE 112; RESP 20; O2SAT 97
[2024-04-19] MEDS: LORazepam 2MG/ML-1ML VIAL IM ONE (12:14)
[2024-04-19 12:59] LABS: Basophils # (auto) 0.1 10 ^3/uL (0-0.2); Basophils % (auto) 0.4 % (0.0-2.0); Eosinophils # (auto) 0 10 ^3/uL (0-0.8); Eosinophils % (auto) 0.1 % (0.0-7.0); Hematocrit 27.6 % (36.0-46.0); Hemoglobin 8.8 g/dL (12.2-16.2); Lymphocytes # (auto) 1.1 10 ^3/uL (0.4-5.4); Lymphocytes % (auto) 4.7 % (10.0-50.0); Mean Corpuscular Hemoglobin 32.4 pg (28.0-32.0); Mean Corpuscular Volume 101.2 fL (80.0-100.0); Monocytes # (auto) 1.5 10 ^3/uL (0-1.3); Monocytes % (auto) 6.1 % (0.0-12.0); Neutrophils # (auto) 21.5 10 ^3/uL (1.6-8.6); Neutrophils % (auto) 88.7 % (37.0-80.0); Platelet Count (auto) 240 10^3/uL (140-450); Red Blood Cells 2.73 10^6/uL (4.0-5.20); Red Cell Distribution Width 19.7 % (11.8-14.3); White Blood Cell 24.2 10^3/uL (4.4-10.8)
[2024-04-19 13:15] LABS: INR 1.78 (0.9-1.15); Partial Thromboplastin Time 37.9 SEC (24.5-34.5); Prothrombin Time 18.1 sec (9.3-11.8)
[2024-04-19 13:30] LABS: Albumin 2.6 g/dL (3.2-4.8); Alkaline Phosphatase 104 U/L (46-116); Anion Gap 9 (5-15); Calcium 8.1 mg/dL (8.7-10.4); Carbon Dioxide 19 mmol/L (20-30); Chloride 108 mmol/L (98-107); Glucose 100 mg/dL (74-106); Potassium 4.5 mmol/L (3.5-5.1); Sodium 136 mmol/L (136-145)
[2024-04-19 13:31] LABS: Alanine Aminotransferase 28 U/L (7-40); Aspartate Aminotransferase 80 U/L (13-40); BUN/Creatinine Ratio 23.9 (10.0-20.0); Bilirubin, Total 25.6 mg/dL (0.2-1.0); Blood Urea Nitrogen 21 mg/dL (9-23); Total Protein 5.3 g/dL (5.7-8.2)
[2024-04-19] MEDS: cefTRIAXone 1GM/50ML D5W 50 ML IV ONE (14:26)
[2024-04-19 14:41] LABS: Urine Bacteria FEW /hpf (None Seen); Urine Blood Negative /uL (Negative); Urine Budding Yeast OCCASIONAL /hpf (None Seen); Urine Clarity Turbid (Clear); Urine Mucus FEW (None Seen); Urine Protein, UAD TRACE (Negative); Urine Specific Gravity 1.018 (1.001-1.035); Urine Urobilinogen Normal (Negative); Urine WBC 9 /hpf (0 - 5)
[2024-04-19 14:45] LABS: Urine Color Dark-Yellow (Yellow)
[2024-04-19] MEDS: LORazepam 2MG/ML-1ML VIAL IV ONE (17:15)
[2024-04-19] MEDS: PIPERACILLIN-TAZOB 3.375GM 100 ML IV ONE (18:37)
[2024-04-19] MEDS: LACTULOSE 20Gm/30ML SOLN PO ONE (18:37)
[2024-04-19 19:45] VITALS: PULSE 96; RESP 20; O2SAT 99
[2024-04-19 20:30] VITALS: BP 108/69; PULSE 96; RESP 22; TEMP 97.8; O2SAT 98
[2024-04-19 21:12] LABS: Body Fluid Polymorphonuclear 28 % (0-25); Body Fluid Red Blood Cells 45 CUMM (0-2000); Body Fluid White Blood Cells 30 CUMM (0-200)
[2024-04-22 13:07] LABS: Protein, Body Fluid 1.3 g/dL (.)
== END 2024-04-19 20:58 | disposition short-term general hospital (02) ==
LOC: ER 11:12 → EDBD 11:12 → EDUNIT# 11:12 → ER 20:58
DX: R41.82 Altered mental status, unspecified (principal); R10.2 Pelvic and perineal pain; D72.829 Elevated white blood cell count, unspecified; K76.82 Hepatic encephalopathy; E80.7 Disorder of bilirubin metabolism, unspecified; Z88.6 Allergy status to analgesic agent; Z90.49 Acquired absence of other specified parts of digestive tract
CPT/HCPCS: 36415; 49083; 70450; 71045; 76942; 80053; 81001; 82140; 84702; 85025; 85610; 85730; 87040; 87086; 87088; 87205; 89051; 96365; 96367; 96372; 96375; 99285; C1729; J0696; J2060; J2543